=== PATIENT | male | born 1955 | race Caucasian/White ===

== ENCOUNTER 2023-06-03 08:28 | Day surgery (SDC) | payer BC, OTHER ==
--- NOTE | 2023-06-02 08:14 | HP ---
DATE OF SURGERY: 06/03/2023 HISTORY OF PRESENT ILLNESS: The patient is a 68-year-old male presented with a history of colon polyps and a mother with some colon cancer. He had a colonoscopy four or five years ago and had colon polyps. He has no colon symptoms. PAST MEDICAL HISTORY: Diabetes, hypertension, hyperlipidemia, asthma. PAST SURGICAL HISTORY: Thalamus cyst removed. Knee replacement. ALLERGIES: NKDA. MEDICATIONS: Metformin, atorvastatin, amlodipine, losartan, Symbicort, albuterol, gabapentin. FAMILY HISTORY: Colon cancer, MS. SOCIAL HISTORY: Former smoker, frequent alcohol. REVIEW OF SYSTEMS: CONSTITUTIONAL: Denies fever or chills. CHEST: Denies shortness of breath. CVS: Denies chest pain. ABDOMEN: Denies abdominal pain. PHYSICAL EXAMINATION: GENERAL: No acute distress. CHEST: Nonlabored. No shortness of breath. CVS: Regular rate and rhythm. ABDOMEN: Soft. IMPRESSION: History of polyps, family history of colon cancer. PLAN: Colonoscopy with Dr. Maikel Molina. As dictated by Sophia Whitney NP.
[2023-06-03 08:54] VITALS: RESP 16
[2023-06-03] MEDS: Lactated Ringers 1,000 ML IV SCH (08:55)
[2023-06-03] MEDS ORDERED: Versed 2 MG/2 ML Injection ONE (10:56)
[2023-06-03] MEDS ORDERED: DIPRIVAN 200 MG/20 ML IV ONE ×2 (10:56→12:41)
[2023-06-03 11:47] VITALS: TEMP 98; O2SAT 95
[2023-06-03 12:03] VITALS: BP 123/79; PULSE 60
--- NOTE | 2023-06-03 12:46 | OP ---
SURGERY DATE/TIME: 06/03/2023 1100 PREOPERATIVE DIAGNOSIS: Family history of colon polyps presents for follow up. There is a family history of colon polyps and colon cancer. POSTOPERATIVE DIAGNOSIS: Normal. PROCEDURE: Colonoscopy complete to cecum. SURGEON: Maikel Molina M.D. GRATED CHEESE MAKER: Melita Dumont M.D., [facility] Resident II. ANESTHESIA: MAC. COMPLICATIONS: None. CONDITION: Stable. INDICATION: Patient presents for five year follow up polyp. DESCRIPTION OF PROCEDURE: Taken to endoscopy. Left lateral decubitus position. Anal digital examination satisfactory. Scope introduced. Scope advanced to the cecum. Base of the cecum well defined. Ileocecal valve, appendiceal orifice were normal. Ascending, hepatic, transverse, splenic, descending, sigmoid, rectum, anus was normal. There was slight redundancy and there was slight increased diameter size of the colon but the mucosa looked good. PLAN: Follow up five years.
== END 2023-06-03 12:10 | disposition home or self-care (01) ==
LOC: SDC 08:28
PROVIDERS: ATTEND Surgery
DX: Z09 Encounter for follow-up examination after completed treatment for conditions other than malignant neoplasm (principal); Z86.010 Personal history of colon polyps; Z80.0 Family history of malignant neoplasm of digestive organs; R73.03 Prediabetes
CPT/HCPCS: 82947; J2250; J2704

== ENCOUNTER 2023-11-11 08:41 | Emergency (ER) | payer BC ==
[2023-11-11 08:55] VITALS: TEMP 95.6
--- NOTE | 2023-11-11 09:13 | ERPHSYRPT ---
- History of Present Illness Time Seen by Provider: 11/11/23 08:45 Historian: patient Exam Limitations: no limitations Patient Subjective Stated Complaint: Right sided abdominal/flank pain Triage Nursing Assessment: Patient brought into ED per w/c and transferred self to bed. Patient A+O X3. Patient's skin pink, warm and dry. Patient states he wo ke up with right lower abdominal pain at 615am and started getting nauseated. Patient stated the pain has gotten worse and has went into his left flank 8/10. Patient complains of nausea, but denies vomiting or diarrhea. Abdomen soft and round with BS X 4. Physician History: 68 years old male with history of hypertension presented in the ER with complains of right lower quadrant/flank pain since 615 when he woke up. Moderate to severe sharp with some radiation to the back, no significant aggravating or relieving factors. Started to improve on its own and currently h aving 5/10 intensity. No vomiting but does have some nausea. Denies any urinary symptoms. No fever or chills reported. No history of kidney stones. Allergies/Adverse Reactions: No Known Drug Allergies Allergy (Verified 11/11/23 08:49) Home Medications: Albuterol Sulfate [Proair Respiclick] 90 mcg IH QID PRN 05/13/23 [History] Amlodipine Besylate 10 mg PO DAILY 05/13/23 [History] Atorvastatin Calcium 40 mg PO DAILY 05/13/23 [History] Gabapentin 300 mg PO DAILY 05/13/23 [History] Losartan Potassium 50 mg PO DAILY 05/13/23 [History] Metformin HCl 500 mg [Glucophage 500 MG] 500 mg PO BIDWM 05/13/23 [History] Budesonide/Formoterol Fumarate [Symbicort 160-4.5 Mcg Inhaler] 6 gm IH BID 06/03/23 [History] Hx Influenza Vaccination/Date Given: No Hx Pneumococcal Vaccination/Date Given: No Immunizations Up to Date: Yes Travel Risk - International Travel Have you traveled outside of the country in past 3 weeks: No - Emerging Infectious Disease Are you exhibiting symptoms associated with any current EIDs: No - Review of Systems Constitutional: No Symptoms Ears, Nose, & Throat: No Symptoms Respiratory: No Symptoms Cardiac: No Symptoms Abdominal/Gastrointestinal: Abdominal Pain, Nausea Genitourinary Symptoms: No Symptoms Musculoskeletal: No Symptoms Skin: No Symptoms Neurological: No Symptoms Psychological: No Symptoms Endocrine: No Symptoms Hematologic/Lymphatic: No Symptoms - Past Medical History Pertinent Past Medical History: Yes Neurological History: Other ENT History: No Pertinent History Cardiac History: High Cholesterol, Hypertension Respiratory History: Asthma Endocrine Medical History: Other Musculoskeletal History: No Pertinent History GI Medical History: No Pertinent History, Polyps History: No Pertinent History Psycho-Social History: No Pertinent History Male Reproductive Disorders: No Pertinent History Other Medical History: tremors. prediabetic - Past Surgical History Past Surgical History: Yes Respiratory: Other Other Surgical History: bilateral athroscopic surgeries on knees. partial knee replacement on the left. thoracic surgery for a mass- laparascopic. 4x colonoscopy - Social History Smoking Status: Former smoker Exposure to second hand smoke: No Drug Use: none - Social Determinants of Health Will the patient participate in the screening: Yes Do you worry about a steady place to live?: No Do you have any problems with any of the following?: No known problems In the past 12 months,have you had to go without utilities?: No Transportation Issues: No Has anyone in your support network made you feel unsafe?: No Have you or anyone in your house had to go without enough: No - Nursing Vital Signs Nursing Vital Signs: Initial Vital Signs Temperature 95.6 F 11/11/23 08:50 Pulse Rate 63 11/11/23 08:50 Respiratory Rate 20 11/11/23 08:50 Blood Pressure 147/84 11/11/23 08:50 O2 Sat by Pulse Oximetry 97 11/11/23 08:50 Pain Scale Pain Intensity 9 - Physical Exam General Appearance: no apparent distress, alert Eye Exam: PERRL/EOMI Ears, Nose, Throat Exam: normal ENT inspection Neck Exam: normal inspection, full range of motion Respiratory Exam: normal breath sounds, lungs clear Cardiovascular Exam: regular rate/rhythm, normal heart sounds Gastrointestinal/Abdomen Exam: soft, normal bowel sounds, tenderness (Right lower quadrant/right flank), No guarding Back Exam: normal inspection, normal range of motion Extremity Exam: normal inspection, normal range of motion Neurologic Exam: alert, oriented x 3, cooperative Skin Exam: normal color SpO2 Interpretation: normal SpO2: 97 O2 Delivery: Room Air Ordered Tests: Active Orders 24 hr Category Date Time Status IV Insertion STAT Care 11/11/23 09:10 Active NPO (ED) STAT Care 11/11/23 09:10 Active ABDOMEN AND PELVIS W/0 CONTRAS [CT] Stat Exams 11/11/23 09:10 Completed CBC W DIFF Stat Lab 11/11/23 09:20 Completed CMP Stat Lab 11/11/23 09:20 Completed CULTURE,URINE Stat Lab 11/11/23 10:54 Received LIPASE Stat Lab 11/11/23 09:20 Completed UA W/RFX UR CULTURE Stat Lab 11/11/23 10:54 Completed Medication Summary Generic Name Dose Route Start Last Admin Trade Name Freq PRN Reason Stop Dose Admin Ceftriaxone Sodium 2 gm in 100 mls @ 200 mls/hr 11/11/23 12:22 11/11/23 12:28 Rocephin 2 Gm/100 Ml Nacl IV 11/11/23 12:51 200 ml/hr STAT ONE 200 mls/hr Administration Discontinued Medications Generic Name Dose Route Start Last Admin Trade Name Freq PRN Reason Stop Dose Admin Sodium Chloride 1,000 mls @ 999 mls/hr 11/11/23 09:10 11/11/23 11:14 Sodium Chloride 0.9% 1000 Ml IV 11/11/23 10:10 Infused .Q1H1M STA Infusion Sodium Chloride Confirm 11/11/23 09:15 Sodium Chloride 0.9% 1000 Ml Administered 11/11/23 09:16 Dose 1,000 mls @ ud .ROUTE .STK-MED ONE Ceftriaxone Sodium Confirm 11/11/23 12:26 Rocephin 2 Gm/100 Ml Nacl Administered 11/11/23 12:27 Dose 2 gm in 100 mls @ ud IV .STK-MED ONE Ketorolac Tromethamine 30 mg 11/11/23 10:17 11/11/23 10:47 Ketorolac Tromethamine 30 Mg/Ml Inj IV 11/11/23 10:18 30 mg STAT ONE Administration Ketorolac Tromethamine Confirm 11/11/23 10:45 Ketorolac Tromethamine 30 Mg/Ml Inj Administered 11/11/23 10:46 Dose 30 mg .ROUTE .STK-MED ONE Morphine Sulfate 4 mg 11/11/23 09:10 11/11/23 09:16 Morphine Sulfate 4 Mg/Ml Injection IV 11/11/23 09:11 4 mg STAT ONE Administration Morphine Sulfate Confirm 11/11/23 09:15 Morphine Sulfate 4 Mg/Ml Injection Administered 11/11/23 09:16 Dose 4 mg .ROUTE .STK-MED ONE Ondansetron HCl 4 mg 11/11/23 09:10 11/11/23 09:16 Ondansetron Hcl 4 Mg/2 Ml Vial IV 11/11/23 09:11 4 mg STAT ONE Administration Ondansetron HCl Confirm 11/11/23 09:14 Ondansetron Hcl 4 Mg/2 Ml Vial Administered 11/11/23 09:15 Dose 4 mg .ROUTE .STK-MED ONE Lab/Rad Data: Laboratory Result Diagrams 11/11/23 09:20 11/11/23 09:20 Laboratory Results 11/11/23 11/11/23 11/11/23 Range/Units 10:54 09:20 09:20 WBC 8.0 (4.23-9.07) x10^3/uL RBC 4.74 (4.63-6.08) x10^6/uL Hgb 13.4 L (13.7-17.5) g/dL Hct 42.0 (40.1-51.0) % MCV 88.6 (79.0-92.2) fL MCH 28.3 (25.7-32.2) pg MCHC 31.9 L (32.3-36.5) g/dL RDW 13.9 (11.6-14.4) % Plt Count 201 (163-337) x10^3/uL MPV 10.5 (9.4-12.4) fL Gran % 80.8 H (34.0-67.9) % Immature Gran % (Auto) 0.4 (0.001-0.429) % Nucleat RBC Rel Count 0.0 (0.00-0.2) % Eos # (Auto) 0.03 L (0.04-0.54) x10^3/uL Immature Gran # (Auto) 0.03 (0.001-0.031) x10^3u/L Absolute Lymphs (auto) 0.98 L (1.32-3.57) x10^3/uL Absolute Monos (auto) 0.48 (0.30-0.82) x10^3/uL Absolute Nucleated RBC 0.00 (0.00-0.012) x10^3u/L Lymphocytes % 12.2 L (21.8-53.1) % Monocytes % 6.0 (5.3-12.2) % Eosinophils % 0.4 L (0.8-7.0) % Basophils % 0.2 (0.2-1.2) % Absolute Granulocytes 6.49 H (1.78-5.38) x10^3/uL Basophils # 0.02 (0.01-0.08) x10^3/uL Sodium 139 (135-145) mmol/L Potassium 4.5 (3.5-5.1) mmol/L Chloride 103 (98-107) mmol/L Carbon Dioxide 26 (22-30) mmol/L Anion Gap 14.7 (5-15) MEQ/L BUN 27 H (9-20) mg/dL Creatinine 1.07 (0.66-1.25) mg/dL Estimated GFR 76.5 ML/MIN Glucose 158 H (74-106) mg/dL Calcium 9.3 (8.4-10.2) mg/dL Total Bilirubin 0.80 (0.2-1.3) mg/dL AST 31 (17-59) U/L ALT 39 (0-50) U/L Alkaline Phosphatase 47 (38-126) U/L Serum Total Protein 8.1 (6.3-8.2) g/dL Albumin 4.7 (3.5-5.0) g/dL Lipase 115 (23-300) U/L Urine Color Yellow (Yellow) Urine Appearance Clear (Clear) Urine pH 5.5 (4.6-8.0) Ur Specific [place] 1.020 (1.005-1.030) Urine Protein Negative (Negative) Urine Glucose (UA) Negative (Negative) mg/dL Urine Ketones Negative (Negative) Urine Blood Moderate A (Negative) Urine Nitrite Negative (Negative) Urine Bilirubin Negative (Negative) Urine Urobilinogen 0.2 (0.2) mg/dL Ur Leukocyte Esterase Negative (Negative) U Hyaline Cast (Auto) NONE SEEN (0-2) /LPF Urine Microscopic RBC 11-20 A (0-5) /HPF Urine Microscopic WBC 0-2 (0-5) /HPF Ur Epithelial Cells None Seen (None Seen) /HPF Urine Bacteria None Seen (None Seen) /HPF Urine Culture Reflexed YES (NO) - Progress Progress: improved, re-examined Progress Note: 11/11/23 12:51 68 years old is evaluated in the ER for right flank pain. He is given fluids and symptomatic treatment with morphine and Toradol with significant improvement in pain and on reevaluation he is pain-free. No peritoneal signs on repeated eval. Workup showed normal white count, chemistries fairly unremarkable. CT is negative for acute appendicitis but does show edematous right kidney with mild hydroureter hydronephrosis consistent with recently passed stone. Patient has sudden improvement in his symptoms which I believe he has passed a stone and urinalysis is positive for blood in the urine and also does have some element of UTI. He is given a dose of Rocephin. Patient since does not have any obstructive uropathy, can be safely discharged with outpatient urology/primary care follow-up. Discussed signs symptoms of worsening needing return to ER which he seems understanding. Stable for discharge. Counseled pt/family regarding: lab results, diagnosis, need for follow-up, rad results Medical Desision Making - Independent Historian Additional History obtained from: Spouse - Diagnostic Testing Diagnostic test were ordered, analyzed, and reviewed by me: Yes Radiological Interpretation: Reviewed by me - Risk of complications The pt has a mod risk of morbidity or mortality based on: Need for prescription drug management - Departure Departure Disposition: Home Clinical Impression: Ureterolithiasis, Pyelonephritis Condition: Stable Critical Care Time: No Referrals: THAI RODRIGES MD [Primary Care Provider] - Follow up with PCP 1 day ABIDA CLARK [COURTESY STAFF] - Follow up/PCP as directed (Call for appointment) Instructions: Kidney Stone, Adult ED, Urinary Tract Infection, Adult ED Additional Instructions: Take Tylenol/ibuprofen as needed for pain. Follow-up with primary care/urology for reevaluation. Return to ER for intractable pain/vomiting/fever chills/difficulty urination. Prescriptions: Cefpodoxime Proxetil 200 mg [Vantin 200 mg] 200 mg PO BID 7 Days #14 tablet
[2023-11-11] MEDS ORDERED: Zofran 4 MG/2 ML VIAL ONE (09:14)
[2023-11-11] MEDS ORDERED: Sodium Chloride 0.9% 1000 ML 1,000 ML ONE (09:15)
[2023-11-11] MEDS ORDERED: MORPHINE SULFATE 4 MG INJ ONE (09:15)
[2023-11-11] MEDS: Zofran 4 MG/2 ML VIAL IV ONE (09:16)
[2023-11-11] MEDS: MORPHINE SULFATE 4 MG INJ IV ONE (09:16)
[2023-11-11] MEDS: Sodium Chloride 0.9% 1000 ML 1,000 ML IV STA (09:17)
[2023-11-11 09:20] LABS: Absolute Neutrophil Ct (ANC) 6.49 x10^3/uL (1.78-5.38); BASOPHIL % 0.2 % (0.2-1.2); Basophil (Absolute #) 0.02 x10^3/uL (0.01-0.08); Eosinophil % 0.4 % (0.8-7.0); Eosinophil (Absolute #) 0.03 x10^3/uL (0.04-0.54); Hemoglobin 13.4 g/dL (13.7-17.5); IMMATURE GRAN # 0.03 x10^3u/L (0.001-0.031); IMMATURE GRAN % 0.4 % (0.001-0.429); Lymphocyte (Absolute #) 0.98 x10^3/uL (1.32-3.57); Lymphocytes % 12.2 % (21.8-53.1); Mean Cell Volume 88.6 fL (79.0-92.2); Mean Corpuscular Hemoglobin 28.3 pg (25.7-32.2); Mean Corpuscular Hgb Concent. 31.9 g/dL (32.3-36.5); Mean Platelet Volume 10.5 fL (9.4-12.4); Monocyte (Absolute #) 0.48 x10^3/uL (0.30-0.82); Neutrophil % 80.8 % (34.0-67.9); Platelet Count 201 x10^3/uL (163-337); Red Blood Count 4.74 x10^6/uL (4.63-6.08); Red Cell Distribution Width 13.9 % (11.6-14.4)
[2023-11-11 09:35] LABS: ALBUMIN 4.7 g/dL (3.5-5.0); ANION GAP 14.7 MEQ/L (5-15); BILIRUBIN,TOTAL 0.8 mg/dL (0.2-1.3); Calcium 9.3 mg/dL (8.4-10.2); Creatinine 1 1.07 mg/dL (0.66-1.25); EST GLOMERULAR FILTRATION RATE 76.5 ML/MIN; Potassium 4.5 mmol/L (3.5-5.1); Total Protein 8.1 g/dL (6.3-8.2)
[2023-11-11] MEDS ORDERED: TORAdol 30 mg Injection ONE (10:45)
[2023-11-11] MEDS: TORAdol 30 mg Injection IV ONE (10:47)
--- NOTE | 2023-11-11 10:48 | XRAY ---
Indication: Right lower quadrant/flank pain. Multiple contiguous axial images obtained through the abdomen pelvis without contrast. Comparison: None Lung bases demonstrate left hemidiaphragm elevation, scattered subsegmental atelectasis/scarring left greater than right, and a few tiny calcified granulomas. Heart not enlarged. Small hiatal hernia. Noncontrasted stomach and bowel loops appear nonobstructed with normal appendix. Mild diffuse scattered colonic fecal debris. No free fluid/air. Right kidney appears moderately edematous with mild hydronephrosis and minimal right hydroureter suggesting passage of recent calculus. No calculus in either system. Remaining liver, gallbladder, pancreas, spleen, adrenal glands, left kidney, left ureter, and bladder are unremarkable for noncontrast exam. Minimal aortoiliac calcifications without AAA. Osseous structures intact with osteopenia, mild/moderate degenerative changes throughout thoracolumbar spine, minimal levoscoliosis, and mild bilateral hip degenerative arthropathy right greater than left. Impression: 1. Edematous right kidney with mild hydronephrosis and minimal hydroureter favoring recent passage of calculus. 2. Incidental moderate diffuse fecal stasis. 3. Chronic findings including left hemidiaphragm elevation with atelectasis/scarring, hiatal hernia, arteriosclerotic disease, chronic bony findings, and old granulomatous disease.
[2023-11-11 12:12] LABS: Appearance Clear (Clear); Bacteria None Seen /HPF (None Seen); Bilirubin Negative (Negative); Blood Moderate (Negative); Epithelial Cells None Seen /HPF (None Seen); Glucose, Urine Negative (Negative); Hyaline Casts NONE SEEN /LPF (0-2); Ketones Negative (Negative); Leukocyte Esterase Negative (Negative); Nitrite Negative (Negative); Ph 5.5 (4.6-8.0); Protein,Urine Dip Negative (Negative); Urobilinogen 0.2 mg/dL (0.2); WBC 0-2 /HPF (0-5)
[2023-11-11 12:19] LABS: ADD URINE CULTURE? YES (NO)
[2023-11-11] MEDS ORDERED: ROCEPHIN 2 GM/100 ML NACL 2 GM/100 ML IVPB IV ONE (12:26)
[2023-11-11] MEDS: ROCEPHIN 2 GM/100 ML NACL 2 GM/100 ML IVPB IV ONE (12:28)
[2023-11-11 13:05] VITALS: BP 117/64; PULSE 72; RESP 18; O2SAT 95
== END 2023-11-11 13:11 | disposition home or self-care (01) ==
LOC: ED 08:41
DX: N13.6 Pyonephrosis (principal); R10.31 Right lower quadrant pain; R11.0 Nausea; E78.5 Hyperlipidemia, unspecified; I10 Essential (primary) hypertension; Z79.84 Long term (current) use of oral hypoglycemic drugs; Z79.899 Other long term (current) drug therapy
CPT/HCPCS: 36000; 36415; 74176; 80053; 81001; 83690; 85025; 87086; 96360; 96365; 96374; 96375; 99284; J0696; J1885; J2270; J2405